=== PATIENT | male | born 1995 | race Caucasian/White ===

== ENCOUNTER 2018-03-27 12:26 | Emergency (ER) | payer OTHER ==
--- NOTE | 2018-03-27 13:54 | EDPHY ---
H & P Stated Complaint: chest pain /sob not sleeping Time Seen by Provider: 03/27/18 13:17 HPI/ROS: CHIEF COMPLAINT: Chest pain, palpitations HISTORY OF PRESENT ILLNESS: The patient presents the ED with several days of chest pain, palpitations and mild dyspnea. Patient reports he has been under increasing stress at school. The patient reports he is having palpitations with significant activity. The patient denies prior history of cardiac conditions. He does have a history of asthma. The patient denies any fever, cough or congestion. The patient denies any abdominal pain, nausea or vomiting. REVIEW OF SYSTEMS: A comprehensive 10 point review of systems is otherwise negative aside from elements mentioned in the history of present illness. Source: Patient - Personal History Current Tetanus Diphtheria and Acellular Pertussis (TDAP): Yes - Medical/Surgical History Hx Asthma: No Hx Chronic Respiratory Disease: No Hx Diabetes: No Hx Cardiac Disease: No Hx Renal Disease: No Hx Cirrhosis: No Hx Alcoholism: No Hx HIV/AIDS: No Hx Splenectomy or Spleen Trauma: No Other PMH: immune deficiency - Social History Smoking Status: Current some day smoker - Physical Exam Exam: General Appearance: Alert, no distress Eyes: Pupils equal and round no pallor or injection ENT, Mouth: Mucous membranes moist Respiratory: There are no retractions, lungs are clear to auscultation Cardiovascular: Regular rate and rhythm Gastrointestinal: Abdomen is soft and nontender, no masses, bowel sounds normal Neurological: A&O, normal motor function, normal sensory exam, normal cranial nerves Skin: Warm and dry, no rashes Musculoskeletal: Neck is supple nontender Extremities: symmetrical, full range of motion Constitutional: Initial Vital Signs Temperature (C) 37 C 03/27/18 12:41 Heart Rate 68 03/27/18 12:41 Respiratory Rate 18 03/27/18 12:41 Blood Pressure 112/75 03/27/18 12:41 O2 Sat (%) 94 03/27/18 12:41 O2 Delivery Mode Room Air Allergies/Adverse Reactions: No Known Allergies Allergy (Unverified 03/27/18 12:40) Home Medications: Medication Instructions Recorded NK [No Known Home Meds] 03/27/18 Medical Decision Making - Diagnostics EKG Interpretation: EKG: Complete interpretation has been separately recorded in the [facility] archive. Summary impression: Sinus rhythm, early repolarization is noted Imaging Results: Imaging Impressions Chest X-Ray 03/27/18 13:57 Impression: Possible airways disease vs excellent inspiration. ED Course/Re-evaluation: The patient presents to the ED with palpitations, mild dyspnea and atypical chest pain. The patient's EKG demonstrates no evidence of an obvious arrhythmia. The patient is nontoxic and well-appearing. His vital signs are stable. Monitoring in the emergency department demonstrates no evidence of arrhythmia. The patient's chest x-ray demonstrates no evidence of obvious disease. The patient's troponin is normal as is his CBC and serum chemistries. Differential Diagnosis: Differential diagnosis considered includes pericarditis, myocarditis, pulmonary embolism, arrhythmia, dehydration, anxiety - Data Points Laboratory Results: Laboratory Results 03/27/18 14:06 03/27/18 14:06 03/27/18 03/27/18 03/27/18 14:08 14:06 14:06 WBC 6.75 10^3/uL 10^3/uL (3.80-9.50) RBC 5.72 10^6/uL 10^6/uL (4.40-6.38) Hgb 16.6 g/dL g/dL (13.7-17.5) Hct 48.5 % % (40.0-51.0) MCV 84.8 fL fL (81.5-99.8) MCH 29.0 pg pg (27.9-34.1) MCHC 34.2 g/dL g/dL (32.4-36.7) RDW 13.6 % % (11.5-15.2) Plt Count 224 10^3/uL 10^3/uL (150-400) MPV 9.1 fL fL (8.7-11.7) Neut % (Auto) 55.0 % % (39.3-74.2) Lymph % (Auto) 35.4 % % (15.0-45.0) [place] % (Auto) 7.1 % % (4.5-13.0) Eos % (Auto) 1.6 % % (0.6-7.6) Baso % (Auto) 0.6 % % (0.3-1.7) Nucleat RBC Rel Count 0.0 % % (0.0-0.2) Absolute Neuts (auto) 3.71 10^3/uL 10^3/uL (1.70-6.50) Absolute Lymphs (auto) 2.39 10^3/uL 10^3/uL (1.00-3.00) Absolute Monos (auto) 0.48 10^3/uL 10^3/uL (0.30-0.80) Absolute Eos (auto) 0.11 10^3/uL 10^3/uL (0.03-0.40) Absolute Basos (auto) 0.04 10^3/uL 10^3/uL (0.02-0.10) Absolute Nucleated RBC 0.00 10^3/uL 10^3/uL (0-0.01) Immature Gran % 0.3 % % (0.0-1.1) Immature Gran # 0.02 10^3/uL 10^3/uL (0.00-0.10) Sodium 139 mEq/L mEq/L (135-145) Potassium 4.0 mEq/L mEq/L (3.3-5.0) Chloride 100 mEq/L mEq/L (97-110) Carbon Dioxide 27 mEq/l mEq/l (22-31) Anion Gap 12 mEq/L mEq/L (8-16) BUN 16 mg/dL mg/dL (7-23) Creatinine 0.9 mg/dL mg/dL (0.7-1.3) Estimated GFR > 60 Glucose 81 mg/dL mg/dL (70-100) Calcium 9.9 mg/dL mg/dL (8.5-10.4) POC Troponin I 0.01 ng/mL ng/mL (0.00-0.08) Point of Care Test Results: Chemistry 03/27/18 14:08 POC Troponin I 0.01 ng/mL ng/mL (0.00-0.08) Departure - Departure Disposition: Home, Routine, Self-Care Clinical Impression: Palpitations Condition: Good Instructions: Heart Palpitations (ED) Additional Instructions: 1. The testing in the emergency department today demonstrates no evidence of a significant abnormality. 2. I do recommend following up with the licensed prosthetist you have been referred to if you continue to experience a racing heart. 3. Please return to the ED for markedly worsening symptoms, difficulty breathing , fever, cough, congestion or other concerns. Referrals: Lalita Venegas MD [Medical Doctor] - As per Instructions
[2018-03-27 14:13] LABS: PLATELET COUNT 224 10^3/uL (150-400)
--- NOTE | 2018-03-27 14:45 | CPEKG ---
Test Reason : OPEN Blood Pressure : / mmHG Vent. Rate : 071 BPM Atrial Rate : 072 BPM P-R Int : 186 ms QRS Dur : 097 ms QT Int : 384 ms P-R-T Axes : 087 079 053 degrees QTc Int : [address] elev, probable normal early repol pattern Confirmed by Montrell Desouza ([id number]) on 03/27/2018 2:44:56 PM Referred By: Confirmed By:Montrell Desouza
[2018-03-27 14:53] VITALS: BP 125/67
== END 2018-03-27 14:52 | disposition home or self-care (01) ==
DX: R00.2 Palpitations (principal); R07.9 Chest pain, unspecified; F17.200 Nicotine dependence, unspecified, uncomplicated
CPT/HCPCS: 84484-PO